=== PATIENT | male | born 1995 | race Caucasian/White ===

== ENCOUNTER 2019-11-01 20:10 | Emergency (ER) | payer BC ==
[2019-11-01] MEDS ORDERED: Lidocaine/EPINEPHrine/Tetracaine Soln 5 ML Each TOP ONE (20:47)
--- NOTE | 2019-11-01 20:56 | EDM.PDOC ---
ED HPI GENERAL MEDICAL PROBLEM - General Chief Complaint: Laceration Stated Complaint: CUT RIGHT THUMB Time Seen by Provider: 11/01/19 20:11 Source of Information: Reports: Patient, RN Notes Reviewed History Limitations: Reports: No Limitations - History of Present Illness INITIAL COMMENTS - FREE TEXT/NARRATIVE: 24-year-old gentleman presents emergency department today with a laceration to the palmar surface of his right thumb he injured himself while opening a can of beans, he believes his tetanus is up-to-date right thumb Pain Score (Numeric/FACES): 1 - Related Data Allergies Allergy/AdvReac Type Severity Reaction Status Date / Time No Known Allergies Allergy Verified 11/01/19 20:32 Home Meds: Home Meds NK [No Known Home Meds] 11/01/19 [History] Past Medical History - Past Health History Medical/Surgical History: Denies Medical/Surgical History Social & Family History - Tobacco Use Smoking Status *Q: Never Smoker - Caffeine Use Caffeine Use: Reports: Coffee, Soda - Recreational Drug Use Recreational Drug Use: No ED ROS GENERAL - Review of Systems Review Of Systems: See Below Constitutional: Reports: No Symptoms Skin: Reports: Wound ED EXAM, SKIN/RASH Exam: See Below Text/Narrative:: Examination of the right thumb there is a 2 cm laceration palmar surface right thumb across the distal pad of the thumb bleeding is controlled full range of motion of all digits radial pulses +2 sensation and intact ED SKIN PROCEDURES - Laceration/Wound Repair Right Digit - 1st (Thumb) Appearance: Subcutaneous, Linear Distal NVT: Neuro & Vascular Intact, No Tendon Injury Anesthetic Type: Local Local Anesthesia - Lidocaine (Xylocaine): 1% Plain Local Anesthetic Volume: 2cc Skin Prep: Saline Saline Irrigation (cc's): 60 Exploration/Debridement/Repair: Wound Explored, In a Bloodless Field, Explored to Base Closed with: Sutures Lac/Wound length In cm: 2 Suture Size: 4-0 # of Sutures: 5 Suture Type: Nylon, Interrupted Sterile Dressing Applied: Nurse Tetanus Status Addressed: Yes Complications: No Course - Vital Signs Last Recorded V/S: Last Vital Signs Temp 96.6 F L 11/01/19 20:32 Pulse 72 11/01/19 20:32 Resp 16 11/01/19 20:32 BP 139/68 11/01/19 20:32 Pulse Ox 99 11/01/19 20:32 - Orders/Labs/Meds Meds: Medications Discontinued Medications Generic Name Dose Route Start Last Admin Trade Name Ela PRN Reason Stop Dose Admin Lidocaine HCl 5 ml 11/01/19 20:47 11/01/19 20:57 Xylocaine-Mpf 1% INJECT 11/01/19 20:48 5 ml ONETIME ONE Administration Lidocaine/Tetracaine 5 ml 11/01/19 20:47 11/01/19 20:57 Let Soln TOP 11/01/19 20:48 5 ml ONETIME ONE Administration Departure - Departure Time of Disposition: 21:36 Disposition: Home, Self-Care 01 Condition: Good Clinical Impression: Laceration of right thumb Qualifiers: Encounter type: initial encounter Damage to nail status: without damage Foreign body presence: without foreign body Qualified Code(s): S61.011A - Laceration without foreign body of right thumb without damage to nail, initial encounter - Discharge Information Instructions: Laceration Care, Adult Referrals: PCP,None [Primary Care Provider] - Forms: ED Department Discharge Additional Instructions: Tylenol or Motrin as needed for pain control, suture removal in 10 days, follow- up with primary care or return to the emergency department for suture removal follow wound care instruction sheet Sepsis Event Note (ED) - Evaluation Sepsis Screening Result: No Definite Risk - Focused Exam Vital Signs: Vital Signs Temp Pulse Resp BP Pulse Ox 11/01/19 20:32 96.6 F L 72 16 139/68 99 11/01/19 20:24 96.6 F L 72 16 139/68 99 - Assessment/Plan Plan: Assessment Acuity = acute Site and laterality = 2 cm laceration right thumb palmar surface Etiology = trauma with a can a beans Manifestations = none Location of injury = Home Lab values = none Plan Follow wound care instruction sheet, suture removal in 10 days Tylenol Motrin as needed for pain control This note was dictated using [email or web address] voice recognition software please call with any questions on syntax or grammar.
== END 2019-11-01 22:05 | disposition home or self-care (01) ==
LOC: JP.ED 20:10
DX: S61.011A Laceration without foreign body of right thumb without damage to nail, initial encounter (principal); W27.4XXA Contact with kitchen utensil, initial encounter
CPT/HCPCS: 12001; 99282; A9270; J2001